=== PATIENT | female | born 1940 | race Two or more races ===

== ENCOUNTER 2024-05-05 12:25 | Emergency (ER) | payer MEDICARE ==
[~2024-05-05] VITALS: Ht 157.5 cm; Wt 72.7 kg
[2024-05-05 12:25] VITALS: BP 162/82; RESP 14; O2SAT 96
[2024-05-05 12:29] VITALS: PULSE 95
== END 2024-05-05 18:50 | disposition left against medical advice (07) ==
LOC: ER 12:25 → EDBD 12:25 → ER 18:50
DX: M25.572 Pain in left ankle and joints of left foot (principal); M25.571 Pain in right ankle and joints of right foot; R94.31 Abnormal electrocardiogram [ECG] [EKG]; Z53.21 Procedure and treatment not carried out due to patient leaving prior to being seen by health care provider
CPT/HCPCS: 93005